=== PATIENT | male | born 1980 | race Caucasian/White ===

== ENCOUNTER 2017-04-12 13:52 | Emergency (ER) | payer OTHER ==
[~2017-04-12] VITALS: Ht 180.3 cm; Wt 127.0 kg
[~2017-04-12 13:52] MED LIST: ANASPAZ0.125 MG SUBLING; AUGMENTIN 875875 MG PO; B & O SUPPRETT1 EAC1 RECTAL; BACTRIM DS TAB1 EACH PO; DIFLUCAN150 MG PO; FLOMAX0.4 MG PO; IBUPROFEN 600600 M1; NORCO 5-325 TA1 EACH PO; PHENAZOPYRIDIN200 M2 PO; TUMS PO; ZOFRAN ODT4 MG PO; ZOFRAN ODT4 MG SUBLING
[2017-04-12] MEDS ORDERED: LIDODERM 5%1 PATC1 TRANSDERM (14:19)
[2017-04-12] MEDS ORDERED: IBUPROFEN 800800 MG PO (14:19)
[2017-04-12] MEDS ORDERED: LIORESAL 10 MG10 MG PO (14:19)
[2017-04-12] MEDS ORDERED: LIPITOR 20 MG T20 M1 PO (14:32)
[2017-04-12] MEDS ORDERED: IBUPROFEN 200200 M1 PO (14:33)
== END 2017-04-12 16:03 | disposition home or self-care (01) ==
LOC: ER 13:52
DX: S09.90XA Unspecified injury of head, initial encounter (principal); S16.1XXA Strain of muscle, fascia and tendon at neck level, initial encounter; Z87.442 Personal history of urinary calculi; K21.9 Gastro-esophageal reflux disease without esophagitis; Z87.891 Personal history of nicotine dependence; V89.2XXA Person injured in unspecified motor-vehicle accident, traffic, initial encounter; Y93.89 Activity, other specified; Y92.89 Other specified places as the place of occurrence of the external cause; Y99.8 Other external cause status